=== PATIENT | female | born 2000 | race African-American/Black ===

== ENCOUNTER 2021-08-30 03:49 | Emergency (ER) | payer SELFPAY ==
[~2021-08-30] VITALS: Ht 165.1 cm; Wt 56.9 kg
[2021-08-30 08:59] LABS: CLARITY URINE CLOUDY (CLEAR); COLOR URINE YELLOW (YELLOW); KETONES URINE TRACE (NEGATIVE); LEUKOCYTE ESTERASE URINE TRACE (NEGATIVE); NITRITE URINE NEGATIVE (NEGATIVE); OCCULT BLOOD URINE 3+ (NEGATIVE); PH URINE 5.5 (4.5-8.0); PROTEIN URINE 1+ (NEGATIVE); SPECIFIC GRAVITY URINE 1.024 (1.005-1.030)
[2021-08-30] MEDS ORDERED: RALT400T PO (10:22)
[2021-08-30] MEDS ORDERED: ONDA4TAB5 PO (10:22)
[2021-08-30] MEDS ORDERED: EMTR1TAB11 PO (10:22)
[2021-08-30] MEDS ORDERED: ONDANSETRON HCL 4MG TABLET PO ONE (10:30)
[2021-08-30] MEDS ORDERED: DOXYCYCLINE HYCLATE 100MG CAPSULE PO ONE (10:30)
[2021-08-30] MEDS ORDERED: CEFTRIAXONE SODIUM 500 MG/VIAL IM ONE (10:30)
[2021-08-30] MEDS ORDERED: RALTEGRAVIR 400MG TABLET PO ONE (10:30)
[2021-08-30] MEDS ORDERED: EMTRICITABINE 200MG CAPSULE PO ONE (10:30)
[2021-08-30] MEDS ORDERED: TENOFOVIR 300MG TABLET PO ONE (10:30)
[2021-08-30 12:27] VITALS: BP 123/75
== END 2021-08-30 12:29 | disposition home or self-care (01) ==
LOC: EEVIPCON 03:49 → ER 03:49
DX: T74.51XA Adult forced sexual exploitation, confirmed, initial encounter (principal)
CPT/HCPCS: 81003; 96372; 99284; J0696; Q0162